=== PATIENT | male | born 1995 | race Two or more races ===

== ENCOUNTER 2016-12-31 10:06 | Emergency (ER) | payer SELFPAY ==
[~2016-12-31] VITALS: Ht 167.6 cm; Wt 72.6 kg
--- NOTE | 2016-12-31 11:01 | Emergency Room Report ---
History of Present Illness General Chief Complaint: General Complaint Source: Patient (FINN HUERTAErick Tapia D.ODoug) Present Illness HPI The patient is a 21-year-old male with a history of depression presenting for palpitations and numbness of the extremities. The patient states that this began 2 nights prior and is worse at night. He does admit to feeling an increase of stress but denies any known provoking factor. He has been taking fluoxetine which was prescribed by his primary doctor in [place]. He states his medication has not been helping for the past year. He denies any pain. He denies other symptoms including nausea, vomiting, fever, chills, shortness of breath, chest pain, headache, dizziness, blurred vision (JUSTIN RASMUSSEN P.A.) Allergies: Coded Allergies: No Known Allergies (Unverified , 12/31/16) Patient History Past Medical History: see triage record Pertinent Family History: none Reviewed Nursing Documentation: PMH: Agreed, PSxH: Agreed (JUSTIN RASMUSSEN P.A.) Nursing Documentation-PMH Past Medical History: No History, Except For Hx Cardiac Problems: No - anxiety (EUGENIESadieMALVIN Tapia D.Luis) Review of Systems All Other Systems: negative except mentioned in HPI (JUSTIN RASMUSSEN P.A.) Physical Exam Vital Signs Date Time Temp Pulse Resp B/P Pulse Ox O2 Delivery O2 Flow Rate FiO2 12/31/16 10:29 98.4 75 20 158/91 99 Room Air (EUGENIESadieMALVIN D.O.) Sp02 EP Interpretation: reviewed, normal General Appearance: no apparent distress, alert, GCS 15, non-toxic Head: normocephalic, atraumatic Eyes: bilateral eye PERRL, bilateral eye normal inspection ENT: hearing grossly normal, normal pharynx, no angioedema, normal voice Neck: full range of motion, supple/symm/no masses Respiratory: chest non-tender, lungs clear, normal breath sounds, no wheezing, speaking full sentences Cardiovascular #1: regular rate, rhythm, no edema Gastrointestinal: normal bowel sounds, non tender, soft, non-distended, no guarding, no rebound Musculoskeletal: back normal, gait/station normal, normal range of motion, non- tender Neurologic: alert, oriented x3, responsive, motor strength/tone normal, sensory intact, normal gait, speech normal Psychiatric: judgement/insight normal, memory normal, no suicidal/homicidal ideation, no delusions, anxious Skin: normal color, no rash, warm/dry, well hydrated (JUSTIN RASMUSSEN) Medical Decision Making PA Attestation Dr. Huerta is my supervising physician. Patient management was discussed with my supervising physician (JUSTIN RASMUSSEN) Diagnostic Impression: Primary Impression: Anxiety ER Course The patient is a 21-year-old male with a history of depression presenting for palpitations and numbness Differential diagnoses considered but not limited to anxiety, drug use, suicidal ideation, depression, among others PE: vitals WNL. Pt appears mildly anxious A&Ox4 PERRL. EOMI. Normal mentation. RRR. No MRG Lungs CTA bilat Extremities: full strength and AROM. SILT. Abdomen: Normal appearance. Non distended. No ecchymosis. Normal BS. Non TTP. No McBurney point tenderness. No guarding. Skin is warm and dry, no rashes. The pt will be treated for anxiety with a short prescription fo Ativan. The patient is given information regarding [facility] facility and is told to followup with them as soon as possible. ER precautions given (JUSTIN RASMUSSEN) Last Vital Signs Date Time Temp Pulse Resp B/P Pulse Ox O2 Delivery O2 Flow Rate FiO2 12/31/16 10:29 98.4 75 20 158/91 99 Room Air (MALVIN HUERTA D.O.) Status: improved (JUSTIN RASMUSSEN) Disposition: HOME, SELF-CARE Condition: Improved Scripts Lorazepam* (ATIVAN*) 0.5 Mg Tablet 0.5 MG ORAL BID, #10 TAB Prov: JUSTIN RASMUSSEN 12/31/16 MALVIN HUERTA D.O. Dec 31, 2016 11:01 JUSTIN RASMUSSEN Dec 31, 2016 12:28
[2016-12-31 12:00] VITALS: BP 149/85
[2016-12-31] MEDS ORDERED: ATIVAN0.5 MG ORAL (12:29)
[2016-12-31] MEDS ORDERED: LORazepam 1mg tab ORAL ONE (12:30)
[2016-12-31 12:40] VITALS: BP 149/85
== END 2016-12-31 12:40 | disposition home or self-care (01) ==
LOC: EMR 11:05
DX: F41.9 Anxiety disorder, unspecified (principal); R00.2 Palpitations; R20.0 Anesthesia of skin
CPT/HCPCS: 80300; 93005; 99282

== ENCOUNTER 2018-05-30 07:41 | Emergency (ER) | payer MEDICAID ==
[~2018-05-30] VITALS: Ht 165.1 cm; Wt 72.6 kg
[~2018-05-30 07:41] MED LIST: ATIVAN0.5 MG ORAL
[2018-05-30 07:48] VITALS: BP 137/88
[2018-05-30] MEDS ORDERED: NKM (07:50)
[2018-05-30] MEDS ORDERED: Clindamycin 150mg cap ORAL ONE (08:15)
[2018-05-30] MEDS ORDERED: CLINDAMYCIN HC150 MG ORAL (08:18)
[2018-05-30] MEDS ORDERED: PERIDEX15 ML MM (08:18)
[2018-05-30] MEDS ORDERED: IBUPROFEN600 MG ORAL (08:18)
[2018-05-30 08:23] VITALS: BP 137/88
--- NOTE | 2018-05-30 08:25 | Emergency Room Report ---
History of Present Illness General Chief Complaint: Toothache Source: Patient Present Illness HPI Patient presents emergency department today complaining of left upper dental pain. Patient apparently has a dental caries in his left upper first molar. He states that the face has become swollen over that area. Denies any fever chest pain shortness of breath. No other injuries are noted. Denies any difficulty with swallowing. Symptoms noted to be moderate. No other modifying factors. No other associated signs and symptoms. No other complaints were noted. Allergies: Coded Allergies: No Known Allergies (Unverified , 12/31/16) Patient History Past Medical History: none Past Surgical History: none Pertinent Family History: none Social History: Denies: smoking, alcohol use, drug use Reviewed Nursing Documentation: PMH: Agreed; PSxH: Agreed Nursing Documentation-PMH Past Medical History: No History, Except For Hx Cardiac Problems: No - anxiety Review of Systems All Other Systems: negative except mentioned in HPI Physical Exam Vital Signs Date Time Temp Pulse Resp B/P (MAP) Pulse Ox O2 Delivery O2 Flow Rate FiO2 05/30/18 07:48 98.2 75 18 137/88 100 Room Air Sp02 EP Interpretation: reviewed, normal General Appearance: normal inspection, well appearing, no apparent distress, alert Head: atraumatic Eyes: bilateral eye normal inspection ENT: hearing grossly normal, normal voice, moist mucus membranes - Mild left cheek swelling, other - left upper first molar dental caries Neck: normal inspection, full range of motion, supple, no bony tend Respiratory: normal inspection, lungs clear, normal breath sounds, no respiratory distress, no retraction, no wheezing Cardiovascular #1: regular rate, rhythm, no edema Gastrointestinal: normal inspection, normal bowel sounds, non tender, soft, no guarding, no hernia Genitourinary: no CVA tenderness Musculoskeletal: normal inspection, back normal, normal range of motion Neurologic: normal inspection, alert, responsive, speech normal Psychiatric: normal inspection, judgement/insight normal, mood/affect normal Skin: normal inspection, normal color, no rash Medical Decision Making Diagnostic Impression: Primary Impression: Dental abscess ER Course Patient presents emergency department today complaining of left facial swelling and dental caries. Differential considerations include dental abscess, cellulitis, sinusitis just name a few. Patient's exam is consistent with dental abscess. There is no evidence of oral airway impingement. Patient will require the services of a dentist. He is advised to seek dental extraction immediately. We'll start patient on clindamycin and Peridex orally. Patient is advised to follow up with primary doctor as needed and return the emergency room for any worsening symptoms and as needed. Last Vital Signs Date Time Temp Pulse Resp B/P (MAP) Pulse Ox O2 Delivery O2 Flow Rate FiO2 05/30/18 07:48 98.2 75 18 137/88 100 Room Air Status: unchanged Disposition: HOME, SELF-CARE Condition: Stable Scripts Chlorhexidine Gluconate (Peridex) 15 Ml Mouthwash 15 ML MM BID for 14 Days, ML Prov: Tre Landry MD 05/30/18 Ibuprofen* (MOTRIN*) 600 Mg Tablet 600 MG ORAL Q8H PRN for For Pain, #20 TAB 0 Refills Prov: Tre Landry MD 05/30/18 Clindamycin Hcl* (CLINDAMYCIN HCL*) 150 Mg Capsule 150 MG ORAL FOUR TIMES A DAY for 7 Days, CAP Prov: Tre Landry MD 05/30/18 Referrals: [facility],REFERRING Patient Instructions: Dental Abscess, [id number] Tre Landry MD May 30, 2018 08:25
== END 2018-05-30 08:23 | disposition home or self-care (01) ==
LOC: EMR 08:05
DX: K04.7 Periapical abscess without sinus (principal); F41.9 Anxiety disorder, unspecified
CPT/HCPCS: 99283